=== PATIENT | male | born 1975 | race Two or more races ===

== ENCOUNTER 2017-07-25 09:53 | Emergency (ER) | payer BC ==
--- NOTE | 2017-07-25 10:41 | ED ---
Upper Extremity HPI - General Chief Complaint: Extremity Injury, Upper Stated Complaint: hand pain Time Seen by Provider: 07/25/17 10:06 Source: patient Mode of arrival: ambulatory Limitations: no limitations - History of Present Illness Initial Comments: 42-year-old male presented for evaluation of injury to fourth MCP joint on the right. States that he was working with some machinery trying to tighten a screw and his hand slipped from the screwdriver causing it to thrust forward into the machinery. States initial pain to the MCP joints of the third and fourth digits and initial swelling however this continued overnight causing him to come to the ED for further treatment and evaluation. States that he has no decrease in sensation, motor function, but does state that there is significant swelling and discoloration on the dorsal surface of the hand. There is no pain to the digits themselves. The other injuries. - Related Data Home Medications Medication Instructions Recorded Confirmed Atorvastatin [Lipitor] 20 mg PO DAILY 07/25/17 07/25/17 Lisinopril [Prinivil] 10 mg PO DAILY 07/25/17 07/25/17 Allergies Allergy/AdvReac Type Severity Reaction Status Date / Time No Known Allergies Allergy Verified 07/25/17 10:59 Review of Systems ROS Statement: Those systems with pertinent positive or pertinent negative responses have been documented in the HPI. ROS Other: All systems not noted in ROS Statement are negative. Respiratory: Denies: cough, dyspnea Cardiovascular: Denies: chest pain, palpitations Musculoskeletal: Reports: joint swelling, arthralgia, myalgia. Denies: back pain Skin: Denies: rash, lesions Neurological: Denies: weakness, numbness, paresthesias Hematological/Lymphatic: Denies: easy bleeding, easy bruising Past Medical History Past Medical History: Hyperlipidemia, Hypertension History of Any Multi-Drug Resistant Organisms: None Reported Additional Past Surgical History / Comment(s): vocal cords Past Psychological History: No Psychological Hx Reported Smoking Status: Never smoker Past Alcohol Use History: Occasional Past Drug Use History: None Reported General Exam Limitations: no limitations General appearance: alert, in no apparent distress Head exam: Present: atraumatic, normocephalic, normal inspection Cardiovascular Exam: Present: regular rate, normal rhythm, normal heart sounds. Absent: systolic murmur, diastolic murmur, rubs, gallop, clicks Rectal exam: Present: deferred Extremities exam: Present: full ROM, tenderness, normal capillary refill, joint swelling (Swelling to the third and fourth MCP of the right hand) Neurological exam: Present: alert, oriented X3, normal gait. Absent: motor sensory deficit Psychiatric exam: Present: normal affect, normal mood Skin exam: Present: warm, dry, intact. Absent: rash Course Vital Signs 07/25/17 10:01 Temperature 98.3 F Pulse Rate 94 Respiratory 16 Rate Blood Pressure 149/92 O2 Sat by Pulse 97 Oximetry Disposition Clinical Impression: Metacarpal bone fracture Disposition: HOME SELF-CARE Condition: Stable Instructions: Hand Fracture (ED) Referrals: None,Stated [Primary Care Provider] - 1-2 days Mily Seaman MD [STAFF PHYSICIAN] - 1-2 days Romeo Rojas DO [Doctor of Osteopathic Medicine] - 1-2 days Time of Disposition: 13:20
--- NOTE | 2017-07-25 12:42 | XR ---
EXAMINATION TYPE: XR hand complete RT , 3 VIEWS DATE OF EXAM ORDERED: 07/25/2017 HISTORY: Pain. COMPARISON: None. FINDINGS: There is a metallic sliver projecting over the thenar eminence. There is swelling of the d orsum of the hand. There is an undisplaced but mildly angulated fracture of the distal fourth metacar pal metaphysis. There is a healed fracture of the base of the fifth metacarpal. IMPRESSION: 1. UNDISPLACED MILDLY ANGULATED FRACTURE OF THE DISTAL FOURTH METACARPAL METAPHYSIS. 2. HEALED FRACTURE OF THE BASE OF THE RIGHT FIFTH METATARSAL. 3. METALLIC SLIVER PROJECTING OVER THE THENAR EMINENCE.
[2017-07-25 13:34] VITALS: BP 131/92; PULSE 88; RESP 18; TEMP 97.1
== END 2017-07-25 13:47 | disposition home or self-care (01) ==
LOC: EC 09:53
DX: S62.304A Unspecified fracture of fourth metacarpal bone, right hand, initial encounter for closed fracture (principal); S62.316G Displaced fracture of base of fifth metacarpal bone, right hand, subsequent encounter for fracture with delayed healing; E78.5 Hyperlipidemia, unspecified; I10 Essential (primary) hypertension; Z79.899 Other long term (current) drug therapy; W22.8XXA Striking against or struck by other objects, initial encounter; Y93.89 Activity, other specified
CPT/HCPCS: 29125; 99283

== ENCOUNTER → 2019-07-08 | Outpatient (CLI) | payer BC ==
[2019-07-08 17:50] LABS: African American GFR (CKD) 132.1 (60.0-200.0); Albumin 4.8 g/dL (3.80-4.90); Albumin/Globulin Ratio 1.85 (1.60-3.17); Anion Gap 10.2 mmol/L (4.00-12.00); BUN/Creat Ratio 22.86 Ratio (12.00-20.00); Calcium 9.7 mg/dL (8.7-10.3); Carbon Dioxide 28.8 mmol/L (21.6-31.8); Chol/HDL Ratio 3.26; Globulin 2.6 g/dL (1.6-3.3); LDL Cholesterol,Calculated 80.2 mg/dL (0.0-131.0); Potassium 4.7 mmol/L (3.5-5.5); Total Bilirubin 1.4 mg/dL (0.3-1.2); Total Protein 7.4 g/dL (6.2-8.2); VLDL Calculation 16.8 mg/dL (5.00-40.00)
== END | disposition home or self-care (01) ==
LOC: LABWHC1 09:49
PROVIDERS: ATTEND Internal Medicine
DX: R03.0 Elevated blood-pressure reading, without diagnosis of hypertension (principal)
CPT/HCPCS: 36415; 80053; 80061

== ENCOUNTER 2021-06-04 00:26 | Inpatient (IN) | payer BC ==
[2021-06-04] MEDS ORDERED: LORazepam 2 MG/ML INJ IV STA (00:36)
[2021-06-04] MEDS ORDERED: SODIUM CHLORIDE 0.9% 500 ML 500 ML IV STA (00:36)
[2021-06-04] MEDS ORDERED: SODIUM CHLORIDE 0.9% 1,000 ML IV STA ×2 (00:36)
[2021-06-04] MEDS ORDERED: DIAZEPAM 5 MG/ML 2 ML INJ IVP STA (00:36)
[2021-06-04] MEDS ORDERED: ONDANSETRON 4 MG/2 ML VIAL IVP STA (00:36)
[2021-06-04] MEDS ORDERED: THIAMINE 100 MG/ML 2 ML VIAL IM STA (00:37)
[2021-06-04] MEDS ORDERED: LORazepam 2 MG/ML INJ IV PRN ×3 (00:37)
--- NOTE | 2021-06-04 00:38 | ED ---
Seizure HPI - General Chief Complaint: Seizure Stated Complaint: seizure Source: patient, EMS, RN notes reviewed, old records reviewed Mode of arrival: EMS Limitations: no limitations - History of Present Illness Initial Comments: This is a 46-year-old male to the ER for evaluation patient presents today for evaluation of seizure activity. Patient presents by EMS after having seizure witnessed by family. EMS was called by family who does with patient having seizure. Patient states he's recently stopped drinking. Patient's been feeling unwell since stopping MD Complaint: seizure -: minutes(s) Description of Episode: loss of consciousness, tonic-clonic movement -: second(s) Witnessed: yes - by bystander, yes - by EMS Trauma: No Seizure History: none Place: home Possible Precipitating Event: none Associated Symptoms: denies other symptoms Treatments Prior to Arrival: none - Related Data Home Medications Medication Instructions Recorded Confirmed Atorvastatin [Lipitor] 20 mg PO DAILY 07/25/17 07/25/17 Lisinopril [Prinivil] 10 mg PO DAILY 07/25/17 07/25/17 Allergies Allergy/AdvReac Type Severity Reaction Status Date / Time No Known Allergies Allergy Verified 07/25/17 10:59 Review of Systems ROS Statement: Those systems with pertinent positive or pertinent negative responses have been documented in the HPI. ROS Other: All systems not noted in ROS Statement are negative. Past Medical History Past Medical History: Hyperlipidemia, Hypertension History of Any Multi-Drug Resistant Organisms: None Reported Additional Past Surgical History / Comment(s): vocal cords Past Psychological History: No Psychological Hx Reported Smoking Status: Former smoker Past Alcohol Use History: Abuse, Heavy Past Drug Use History: None Reported General Exam Limitations: no limitations General appearance: alert, in no apparent distress Head exam: Present: atraumatic, normocephalic, normal inspection Eye exam: Present: normal appearance, PERRL, EOMI. Absent: scleral icterus, conjunctival injection, periorbital swelling ENT exam: Present: normal exam, mucous membranes moist Neck exam: Present: normal inspection. Absent: tenderness, meningismus, lymphadenopathy Respiratory exam: Present: normal lung sounds bilaterally. Absent: respiratory distress, wheezes, rales, rhonchi, stridor Cardiovascular Exam: Present: regular rate, normal rhythm, normal heart sounds. Absent: systolic murmur, diastolic murmur, rubs, gallop, clicks GI/Abdominal exam: Present: soft, normal bowel sounds. Absent: distended, tenderness, guarding, rebound, rigid Extremities exam: Present: normal inspection, full ROM, normal capillary refill. Absent: tenderness, pedal edema, joint swelling, calf tenderness Back exam: Present: normal inspection Neurological exam: Present: alert, oriented X3, CN II-XII intact Psychiatric exam: Present: normal affect, normal mood Skin exam: Present: warm, dry, intact, normal color. Absent: rash Course Vital Signs 06/04/21 06/04/21 00:28 01:52 Temperature 98.3 F Pulse Rate 77 96 Respiratory 16 16 Rate Blood Pressure 170/113 157/118 O2 Sat by Pulse 97 96 Oximetry - Reevaluation(s) Reevaluation #1: 06/04/21 01:23 Medical record is reviewed Medical Decision Making - Medical Decision Making 46 male to the ER for evaluation patient with seizure new-onset seizure suspected alcohol withdrawal seizure although patient does state last drink was 4 weeks ago., Does not source of the patient is significantly diaphoretic sweating and tremorous - Lab Data Result diagrams: 06/04/21 00:39 06/04/21 00:39 Lab Results 06/04/21 06/04/21 06/04/21 Range/Units 00:39 00:39 00:39 WBC 11.1 H (3.8-10.6) k/uL RBC 4.28 L (4.30-5.90) m/uL Hgb 14.9 (13.0-17.5) gm/dL Hct 42.8 (39.0-53.0) % MCV 100.0 (80.0-100.0) fL MCH 34.8 (25.0-35.0) pg MCHC 34.8 (31.0-37.0) g/dL RDW 12.6 (11.5-15.5) % Plt Count 142 L (150-450) k/uL MPV 7.7 Neutrophils % 86 % Lymphocytes % 8 % Monocytes % 3 % Eosinophils % 1 % Basophils % 0 % Neutrophils # 9.5 H (1.3-7.7) k/uL Lymphocytes # 0.9 L (1.0-4.8) k/uL Monocytes # 0.4 (0-1.0) k/uL Eosinophils # 0.1 (0-0.7) k/uL Basophils # 0.1 (0-0.2) k/uL Sodium 134 L (137-145) mmol/L Potassium 3.6 (3.5-5.1) mmol/L Chloride 98 (98-107) mmol/L Carbon Dioxide 25 (22-30) mmol/L Anion Gap 11 mmol/L BUN 10 (9-20) mg/dL Creatinine 0.57 L (0.66-1.25) mg/dL Est GFR (CKD-EPI)AfAm >90 (>60 ml/min/1.73 sqM) Est GFR (CKD-EPI)NonAf >90 (>60 ml/min/1.73 sqM) Glucose 122 H (74-99) mg/dL Plasma Lactic Acid Sonido 1.3 (0.7-2.0) mmol/L Calcium 9.6 (8.4-10.2) mg/dL Phosphorus 2.6 (2.5-4.5) mg/dL Magnesium 1.7 (1.6-2.3) mg/dL Total Bilirubin 2.5 H (0.2-1.3) mg/dL AST 54 (17-59) U/L ALT 18 (4-49) U/L Alkaline Phosphatase 68 (38-126) U/L Creatine Kinase 169 (55-170) U/L Troponin I (0.000-0.034) ng/mL Total Protein 7.9 (6.3-8.2) g/dL Albumin 4.8 (3.5-5.0) g/dL Serum Alcohol <10 mg/dL 06/04/21 Range/Units 00:39 WBC (3.8-10.6) k/uL RBC (4.30-5.90) m/uL Hgb (13.0-17.5) gm/dL Hct (39.0-53.0) % MCV (80.0-100.0) fL MCH (25.0-35.0) pg MCHC (31.0-37.0) g/dL RDW (11.5-15.5) % Plt Count (150-450) k/uL MPV Neutrophils % % Lymphocytes % % Monocytes % % Eosinophils % % Basophils % % Neutrophils # (1.3-7.7) k/uL Lymphocytes # (1.0-4.8) k/uL Monocytes # (0-1.0) k/uL Eosinophils # (0-0.7) k/uL Basophils # (0-0.2) k/uL Sodium (137-145) mmol/L Potassium (3.5-5.1) mmol/L Chloride (98-107) mmol/L Carbon Dioxide (22-30) mmol/L Anion Gap mmol/L BUN (9-20) mg/dL Creatinine (0.66-1.25) mg/dL Est GFR (CKD-EPI)AfAm (>60 ml/min/1.73 sqM) Est GFR (CKD-EPI)NonAf (>60 ml/min/1.73 sqM) Glucose (74-99) mg/dL Plasma Lactic Acid Sonido (0.7-2.0) mmol/L Calcium (8.4-10.2) mg/dL Phosphorus (2.5-4.5) mg/dL Magnesium (1.6-2.3) mg/dL Total Bilirubin (0.2-1.3) mg/dL AST (17-59) U/L ALT (4-49) U/L Alkaline Phosphatase (38-126) U/L Creatine Kinase (55-170) U/L Troponin I <0.012 (0.000-0.034) ng/mL Total Protein (6.3-8.2) g/dL Albumin (3.5-5.0) g/dL Serum Alcohol mg/dL - EKG Data -: EKG Interpreted by Me (EKG shows sinus rhythm rate of 100 OH 110 QRS 100 QTc 472) - Radiology Data Radiology results: report reviewed (CT brain is negative for acute disease), image reviewed Critical Care Time Critical Care Time: Yes Total Critical Care Time: 31 Disposition Clinical Impression: New onset seizure, Alcohol withdrawal, Delirium tremens Disposition: ADMITTED IP TO THIS HOSP Condition: Fair Instructions (If sedation given, give patient instructions): Seizure/Epilepsy Discharge Instructions & Follow-Up Is patient prescribed a controlled substance at d/c from ED?: No Referrals: None,Stated [Primary Care Provider] - 1-2 days
[2021-06-04] MEDS ORDERED: levETIRAcetam IV 1,500 MG in SALINE 1 100ML.BAG IVPB ONE (00:45)
[2021-06-04 01:13] LABS: Basophils # (A) 0.1 k/uL (0-0.2); Basophils % (A) 0 %; Eosinophils # (A) 0.1 k/uL (0-0.7); Eosinophils % (A) 1 %; HCT 42.8 % (39.0-53.0); HGB 14.9 gm/dL (13.0-17.5); Lymphocytes # (A) 0.9 k/uL (1.0-4.8); Lymphocytes % (A) 8 %; MCH 34.8 pg (25.0-35.0); MCHC 34.8 g/dL (31.0-37.0); Mean Platelet Volume 7.7; Monocytes # (A) 0.4 k/uL (0-1.0); Monocytes % (A) 3 %; Neutrophils # (A) 9.5 k/uL (1.3-7.7); Neutrophils % (A) 86 %; Platelet Count 142 k/uL (150-450); RBC 4.28 m/uL (4.30-5.90); RDW 12.6 % (11.5-15.5); WBC 11.1 k/uL (3.8-10.6)
[2021-06-04 01:25] LABS: ALT 18 U/L (4-49); AST 54 U/L (17-59); African American GFR (CKD) >90 (>60 ml/min/1.73 sqM); Albumin 4.8 g/dL (3.5-5.0); Alcohol <10 mg/dL; Alkaline Phosphatase 68 U/L (38-126); Anion Gap 11 mmol/L; Blood Urea Nitrogen 10 mg/dL (9-20); Calcium 9.6 mg/dL (8.4-10.2); Carbon Dioxide 25 mmol/L (22-30); Chloride 98 mmol/L (98-107); Creatine Kinase 169 U/L (55-170); Glucose 122 mg/dL (74-99); Magnesium 1.7 mg/dL (1.6-2.3); Non-African American GFR(CKD) >90 (>60 ml/min/1.73 sqM); Phosphorus 2.6 mg/dL (2.5-4.5); Potassium 3.6 mmol/L (3.5-5.1); Sodium 134 mmol/L (137-145); Total Bilirubin 2.5 mg/dL (0.2-1.3); Total Protein 7.9 g/dL (6.3-8.2)
--- NOTE | 2021-06-04 01:34 | CT ---
EXAMINATION TYPE: CT brain wo con DATE OF EXAM: 06/04/2021 COMPARISON: None HISTORY: SEIZURE CT DLP: 1216.4 mGycm Automated exposure control for dose reduction was used. There is mild cerebral atrophy. There is no mass effect nor midline shift. There is no sign of intrac ranial hemorrhage. The calvarium is intact. There is normal aeration of the mastoid sinuses. Skull ba se is intact. There is some dense calcification in the anterior cerebral falx. IMPRESSION: Mild atrophy. No acute intracranial abnormality.
[2021-06-04] MEDS: DEXTROSE 5%-0.45% NACL 1,000 ML IV SCH ×3 (01:45→21:50)
[2021-06-04] MEDS ORDERED: ONDANSETRON 4 MG/2 ML VIAL IVP PRN (02:23)
[2021-06-04] MEDS ORDERED: MORPHINE SULFATE 4 MG/ML SYRINGE IV PRN (02:23)
[2021-06-04] MEDS ORDERED: NALOXONE 0.4 MG/ML 1 ML VIAL IV PRN (02:23)
--- NOTE | 2021-06-04 11:05 | HP ---
HISTORY AND PHYSICAL HISTORY: A 46-year-old male came in, history seizure activity witnessed by his family, longstanding history of seizures. He recently stopped drinking. He has been placed on CIWA protocol and Neurology has been consulted. No chest pain, shortness of breath, lightheaded, dizziness, syncope. MEDICINES: At home include Lipitor 20 daily, Prinivil 10 daily. ALLERGIES: Negative. PAST MEDICAL HISTORY: Former smoker, heavy alcohol abuse. REVIEW OF SYSTEMS: A 14-point review of systems is otherwise negative. PHYSICAL EXAMINATION: Temperature is 98.1, pulse is 70s to 90s, respiratory rate 16 to 18, blood pressure 150s to 170s over 112 to 118 in the ER. : No suprapubic tenderness. PSYCH: Fair mood and affect. Kind of sleepy and lethargic. SKIN: Dry skin turgor, dry mucous membranes. HEENT: Normocephalic atraumatic. Pupils equal, round, reactive to light. Ear canals within normal limits. LUNGS: Normal breath sounds. CARDIOVASCULAR: Regular rate and rhythm. GI: Soft, normal bowel sounds. ASSESSMENT: 1. Alcohol withdrawal versus seizure. 2. History of severe alcohol abuse with delirium tremens. 3. New onset seizure. PLAN: Get neurology consult. Monitor for seizures. Placed on CIWA protocol. Monitor electrolytes. MMODL / IJN: [id number] /
--- NOTE | 2021-06-04 12:02 | P.CNNES ---
History of Present Illness Consult date: 06/04/21 Requesting physician: Casper Lucas Reason for Consult: seizure History of Present Illness: This is a 46-year-old gentleman with history of alcohol use for the past 8 years who presented emergency department via EMS on 06/04/2021 for seizure-like activity. Some of the history is obtained from the patient's (Laura) via phone. Per the patient he stated that he had an seizure activity yesterday evening while sitting on a couch that was witnessed by family members and does not recall the episode. Per the patient's she stated that patient was sitting on a couch and heard a loud noise and then when she came she saw the patient shaking all extremities and was unresponsive and the episode lasted for 1 minutes. His face turned blue during the episode. She could not appreciate any gaze deviation she said that she was not paying attention added. She denies any foaming around the mouth. Patient did not have any urinary or bowel incontinence and the patient did not have any post ictal confusion she stated that he was talking appropriately right after the episode but did not know what transpired. This was the first seizure activity the patient had that. Patient has not had any seizures in the past. Per the patient he stated that his last was 3-1/2-4 weeks ago and he stated that multiple times but upon having his on speaker phone using the patient phone, his stated that that was not accurate and the patient continues to drink. She stated that his last drink was this past Wednesday that is aware of. She stated that last week the patient was notified by his work the place for him to leave work that day since patient was unsteady walking and they smelled alcohol on his breath. He said for the past 8 years he's been drinking heavily and he drinks about a pint a day but the last 3-1/2 weeks to 4 weeks he is been not drinking as heavily and says he's probably drink in the eyeglass and its small. In the last couple days patient has been having sweating episodes and been feeling hot and cold. Again last week when he was at work the stated that he was drinking and he was notified by his work that the he was drunk and he was walk-in unsteady. Patient denies any fevers, headache, neck pain, focal weakness, numbness, visual disturbance. Denies any nausea or vomiting. Patient denies any seizures in the past or any family history of seizures. Per the patient's nurse and she stated that the patient is restless. Some of the workup in the hospital consisted of: Initial vital signs his blood pressure of 170/113, heart rate of 77, respiratory of 16, temperature of 98.3 Fahrenheit oral and pulse ox of 97% room air. CT of the head is reported as mild atrophy. No acute intracranial abnormality. I personally reviewed the CT of the head and I feel the patient has calcified meningioma in anterior mid front falx region. EKG is reported as sinus rhythm with short ND. Rightward axis. Borderline EKG. White blood cell is 11.1 which is slightly elevated and the platelets is 142 which is slightly low. Sodium is 134 which is minimally low. The glucose is 122. Otherwise the rest of the chemistry panel is unremarkable. Calcium is 9.6, phosphorus 2.6, magnesium is 1.7, glucose is 122 which is on elevated blood unremarkable. Serum alcohol level is less than 10. Review of Systems Review of system: The 12 point system was reviewed and apparent positive and negative per HPI. Past Medical History Past Medical History: Hyperlipidemia, Hypertension History of Any Multi-Drug Resistant Organisms: None Reported Additional Past Surgical History / Comment(s): vocal cords Past Psychological History: No Psychological Hx Reported Smoking Status: Never smoker Past Alcohol Use History: Abuse, Heavy Past Drug Use History: None Reported Medications and Allergies Home Medications Medication Instructions Recorded Confirmed Type No Known Home Medications 06/04/21 06/04/21 History Allergies Allergy/AdvReac Type Severity Reaction Status Date / Time No Known Allergies Allergy Verified 07/25/17 10:59 Physical Examination - Vital Signs Vital Signs: Vital Signs Temp Pulse Pulse Resp BP BP Pulse Ox 06/04/21 07:26 98.3 F 86 18 153/98 96 06/04/21 03:41 98.0 F 86 16 151/93 96 06/04/21 02:40 77 16 149/101 98 06/04/21 01:52 96 16 157/118 96 06/04/21 00:28 98.3 F 77 16 170/113 97 Intake and Output 06/03/21 06/04/21 06/04/21 22:59 06:59 14:59 Intake Total 200 Output Total 450 Balance -250 Intake: Intake, IV Titration 200 Amount Dextrose 5%-0.45% NaCl 1, 200 000 ml @ 100 mls/hr IV . Q10H [facility] Rx#:[id number] Output: Urine 450 Other: Voiding Method Urinal Urinal Weight 99.79 kg GENERAL: The patient is lying in bed and seems restless. HENT: Supple neck. No neck rigidity. CHEST: The heart rate is regular rate rhythm. No murmurs to auscultation. No carotid bruit bilaterally. LUNG: Clear to auscultation bilaterally no wheezing noted throughout. Not labored breathing. ABDOMEN/GI: Bowel sounds present in all 4 quadrants. No tenderness to palpation throughout. NEUROLOGICAL: Higher mental function: The patient is awake, alert, oriented to self, place and time. Patient is following commands. Patient speak has an accent but is understandable. No aphasia and no neglect. Cranial nerves: The pupils are round, equal and reactive to light and accommodation. Visual morales are full to confrontation throughout. Extraocular movement is intact no nystagmus is noted. Facial sensation is normal to touch throughout. The facial strength is normal throughout. Hearing is normal laine aterally to hand rub. Tongue is midline and moved [id number] without any difficulty. No dysarthria is noted. Shoulder shrug is normal bilaterally. Motor: Gait is deferred. The strength is 5 over 5 throughout. Normal tone and bulk. Cerebellum: Normal finger to nose heel to jasmine bilaterally. Sensation: Sensation is normal to touch throughout. Reflexes (right/left): 2+ throughout. Plantars are downgoing bilaterally. Results - Laboratory Findings CBC and BMP: 06/04/21 00:39 06/04/21 00:39 Abnormal Lab Findings: Abnormal Labs 06/04/21 06/04/21 00:39 00:39 WBC 11.1 H RBC 4.28 L Plt Count 142 L Neutrophils # 9.5 H Lymphocytes # 0.9 L Sodium 134 L Creatinine 0.57 L Glucose 122 H Total Bilirubin 2.5 H Assessment and Plan Assessment: * New onset seizure seems provoked seizure due to alcohol withdrawl (drinks heavily for the past 8 years but has been trying to cut down for the past 3 1/2 to 4 weeks. Last drink was possibly Wednesday). * Heavy alcohol use for past 8 years (patient is not forward about his drinking and stated initially multiple times his last drink was 3 1/2 to 4 weeks ago but upon having his on phone speaker she stated he continues to drinks and he did acknowledge that he continues to drink but not as heavily) Plan: * In the ED the patient was given Keppra 1500 mg once and was given Valium 5 mg once. * An EEG is ordered by the primary team. I will not start the patient on antiepileptic drug since this is provoke. I will start the patient on AED if epileptiform discharges or seizure on the EEG or any structural abnormality on MRI Brain. * I ordered MRI the brain with and without. If patient refuses this, than this can be done as outpatient. * Seizure precaution and seizure pads are ordered. * Every 4 hours neuro checks * Ordered vitamin B12, folate level. * Thiamine 100 mg a tablet twice a day is ordered by ED team is to be continued. * The is requesting psychiatric consultation * We'll defer the rest of the medical management to primary team. 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 * Patient was counseled on continuing to abstain from alcohol use. The plan is discussed with the patient and his (Laura) via phone. Thank you for the consultation. Zac Cervantes M.D. Neurology was Time with Patient: Greater than 30
[2021-06-04] MEDS: PANTOPRAZOLE 40 MG/10 ML VIAL IV SCH (12:25)
--- NOTE | 2021-06-04 13:19 | P.CN ---
Psychiatric Consult - . Consult date: 06/04/21 Consult:: 06/04/21 13:19 IDENTIFYING DATA: This patient is a 46-year-old, employed, , male who was admitted for seizure-like activity in the context of alcohol withdrawal. HISTORY OF PRESENT ILLNESS: The patient presented to the hospital on 06/04/2021, brought in by EMS after the family witnessed the patient experienced a seizure. The patient has been drinking heavily and decided to stop drinking. Psychiatry has been consulted for evaluation of alcohol use disorder. The patient reports that prior to this presentation to the hospital, he was drinking up to a pint of hard liquor per day. He reports that he recently decre ased his alcohol use to approximately 2 ounces of liquor in the morning. Reportedly, the patient was sitting on the couch and his noticed that he was shaking in all extremities and was unresponsive for a minute. The patient was also noted to be quite cyanotic during this episode. The patient reports that this is the first time he has experienced a seizure. He does report a history of withdrawal symptoms but only noted that prior to this seizure episode, he would only experience at most tremors. The patient denies ever going to rehabilitation for alcohol use disorder. He denies any history of detoxification. He denies ever being placed on medications for alcohol use disorder. The patient recently cut down on his alcohol use as he was noted to be intoxicated while at work. In regards to psychiatric symptoms, the patient is not endorsing any significant history of depression or anxiety at this time. He denies any history of suicidal or homicidal ideation, intention, and/or plan. Reports no prior attempts at suicide. He denies any auditory or visual hallucinations. He denies any paranoia or other delusions. The patient denies any significant history of bipolar disorder. PAST PSYCHIATRIC HISTORY: The patient denies any significant psychiatric history. Reports no previous trials of psychotropic medications. He denies any psychiatric hospitalizations. He denies any psychiatric outpatient follow-up. He denies any prior attempts at suicide. PAST MEDICAL HISTORY: . ALLERGIES: NO KNOWN DRUG ALLERGIES CHEMICAL DEPENDENCY HISTORY: The patient reports that he has been drinking up to a pint of liquor per day for years. He reports that over the past week his decreased his intake to "a few sips in the morning." He points to his yogurt and states that this is the amount of liquor that he continues to have daily. He reports no history of rehabilitation. FAMILY PSYCHIATRIC/SUBSTANCE USE HISTORY: denies SOCIAL HISTORY: Patient [place] He has been to his since 1995. They have 2 children together ages 17 and 21. 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 He currently lives with his mother, child, and his . He graduated high school. He moved to [place] from [facility] in 1986.. MENTAL STATUS EXAM: General Appearance: Patient appears to be stated age is alert, pleasant, and cooperative. Patient appears to have fair hygiene and grooming wearing hospital gown with fair eye contact. Behavior: Patient is calmly lying in bed without any agitated behavior. Eye contact is appropriate. Speech: Patient's speech is fluent and nonpressured. Monotone but spontaneous. Mood/Affect: Patient reports their mood is "doing fine", affect is congruent and euthymic. Suicidality/Homicidality: Patient denies having any suicidal or homicidal ideation intent or plan. Perceptions: Patient denies any visual hallucinations and denies any auditory hallucinations Though content/process: There is no evidence of any delusional thought content and thought process is linear and goal-directed. Memory and concentration: AOX3, grossly intact for the purposes of this session. Can spell "WORLD" backwards Judgment and insight: Fair Vital Signs Temp 98.4 F 06/04/21 13:06 Pulse 74 06/04/21 13:06 Resp 18 06/04/21 13:06 BP 129/82 06/04/21 13:06 Pulse Ox 95 06/04/21 13:06 Intake & Output 06/03/21 06/04/21 06/04/21 18:59 06:59 18:59 Intake Total 200 Output Total 450 Balance -250 Weight 99.79 kg Intake: Intake, IV Titration 200 Amount Dextrose 5%-0.45% NaCl 1, 200 000 ml @ 100 mls/hr IV . Q10H [facility] Rx#:[id number] Output: Urine 450 Other: Voiding Method Urinal Urinal Laboratory Results WBC 11.1 k/uL (3.8-10.6) H 06/04/21 00:39 RBC 4.28 m/uL (4.30-5.90) L 06/04/21 00:39 Hgb 14.9 gm/dL (13.0-17.5) 06/04/21 00:39 Hct 42.8 % (39.0-53.0) 06/04/21 00:39 MCV 100.0 fL (80.0-100.0) 06/04/21 00:39 MCH 34.8 pg (25.0-35.0) 06/04/21 00:39 MCHC 34.8 g/dL (31.0-37.0) 06/04/21 00:39 RDW 12.6 % (11.5-15.5) 06/04/21 00:39 Plt Count 142 k/uL (150-450) L 06/04/21 00:39 MPV 7.7 06/04/21 00:39 Neutrophils % 86 % 07 00:39 Lymphocytes % 8 % 06/04/21 00:39 Monocytes % 3 % 06/04/21 00:39 Eosinophils % 1 % 06/04/21 00:39 Basophils % 0 % 06/04/21 00:39 Neutrophils # 9.5 k/uL (1.3-7.7) H 06/04/21 00:39 Lymphocytes # 0.9 k/uL (1.0-4.8) L 06/04/21 00:39 Monocytes # 0.4 k/uL (0-1.0) 06/04/21 00:39 Eosinophils # 0.1 k/uL (0-0.7) 06/04/21 00:39 Basophils # 0.1 k/uL (0-0.2) 06/04/21 00:39 Sodium 134 mmol/L (137-145) L 06/04/21 00:39 Potassium 3.6 mmol/L (3.5-5.1) 06/04/21 00:39 Chloride 98 mmol/L (98-107) 06/04/21 00:39 Carbon Dioxide 25 mmol/L (22-30) 06/04/21 00:39 Anion Gap 11 mmol/L 06/04/21 00:39 BUN 10 mg/dL (9-20) 06/04/21 00:39 Creatinine 0.57 mg/dL (0.66-1.25) L 06/04/21 00:39 Est GFR (CKD-EPI)AfAm >90 (>60 ml/min/1.73 sqM) 06/04/21 00:39 Est GFR (CKD-EPI)NonAf >90 (>60 ml/min/1.73 sqM) 06/04/21 00:39 Glucose 122 mg/dL (74-99) H 06/04/21 00:39 Plasma Lactic Acid Sonido 1.3 mmol/L (0.7-2.0) 06/04/21 00:39 Calcium 9.6 mg/dL (8.4-10.2) 06/04/21 00:39 Phosphorus 2.6 mg/dL (2.5-4.5) 06/04/21 00:39 Magnesium 1.7 mg/dL (1.6-2.3) 06/04/21 00:39 Total Bilirubin 2.5 mg/dL (0.2-1.3) H 06/04/21 00:39 AST 54 U/L (17-59) 06/04/21 00:39 ALT 18 U/L (4-49) 06/04/21 00:39 Alkaline Phosphatase 68 U/L (38-126) 06/04/21 00:39 Creatine Kinase 169 U/L (55-170) 06/04/21 00:39 Troponin I <0.012 ng/mL (0.000-0.034) 06/04/21 00:39 Total Protein 7.9 g/dL (6.3-8.2) 06/04/21 00:39 Albumin 4.8 g/dL (3.5-5.0) 06/04/21 00:39 Serum Alcohol <10 mg/dL 06/04/21 00:39 IMPRESSIONS: Alcohol use disorder Acute alcohol withdrawal - new-onset seizure likely provoked by alcohol withdrawal PLAN: -At this time patient DOES NOT meet criteria for inpatient psychiatric admission. -Would recommend the following medication changes/additions: No medication recommendations at this time. Continue CIWA protocol with ativan PRN. -Recommend patient is provided sources from regarding alcohol cessation programs -Psychiatry will sign off at this point, please contact with any questions.
--- NOTE | 2021-06-04 17:05 | EEG ---
ELECTROENCEPHALOGRAM REPORT DATE OF SERVICE: 06/04/2021 CLINICAL HISTORY: This is a 46-year-old gentleman with a history of alcohol use, who had a seizure-like episode. The video EEG is obtained to evaluate for seizure and epileptiform activity. RELEVANT MEDICATION: The patient is not on any antiepileptic drugs. EEG TYPE: A routine 21 channel EEG is performed with video using the 10/20 electrode placement system. DESCRIPTION: Wakefulness is only obtained. During wakefulness, there is a posterior dominant rhythm of bas-mz-jvvitgnb voltage that is well modulated, well sustained of 8.5-9 hertz activity. There was no physiological sleep architecture seen. There is no focal slowing. Interictal and ictal are none. ACTIVATION PROCEDURES: Photic stimulation did not evoke a posterior driving response. There is no abnormality during the photic stimulation. Hyperventilation is not performed. CLINICAL INTERPRETATION: This is a normal routine EEG. There are no focal slowing, epileptiform discharges or seizure on the EEG. Clinical correlation is recommended. BHASKAR / MEIN: [id number] / MTDSalome
[2021-06-04] MEDS: THIAMINE 100 MG TAB PO SCH (17:23)
[2021-06-05 04:39] LABS: Folate, Serum 7.6 ng/mL
[2021-06-05] MEDS: DEXTROSE 5%-0.45% NACL 1,000 ML IV SCH (05:01)
[2021-06-05] MEDS: PANTOPRAZOLE 40 MG/10 ML VIAL IV SCH (08:28)
[2021-06-05] MEDS: THIAMINE 100 MG TAB PO SCH (08:29)
[2021-06-05 09:21] LABS: Basophils # (A) 0.06 X 10*3/uL (0.00-0.10); Basophils % (A) 0.7 %; Eosinophils # (A) 0.26 X 10*3/uL (0.04-0.35); HCT 40.7 % (39.6-50.0); HGB 13.8 g/dL (13.0-17.0); Lymphocytes # (A) 1.73 X 10*3/uL (0.90-5.00); Lymphocytes % (A) 19.8 %; MCH 35.1 pg (27.0-32.0); MCHC 33.9 g/dL (32.0-37.0); MCV 103.6 fL (80.0-97.0); Mean Platelet Volume 9.5 fL (9.5-12.2); Monocytes # (A) 0.62 X 10*3/uL (0.20-1.00); Monocytes % (A) 7.1 %; Neutrophils # (A) 6.03 X 10*3/uL (1.80-7.70); Neutrophils % (A) 69.1 %; Platelet Count 128 X 10*3/uL (140-440); RBC 3.93 X 10*6/uL (4.40-5.60); RDW 12.7 % (11.5-14.5); WBC 8.73 X 10*3/uL (4.50-10.00)
[2021-06-05 11:34] LABS: African American GFR (CKD) 130.2 (60.0-200.0); Albumin 4.3 g/dL (3.80-4.90); Albumin/Globulin Ratio 1.48 (1.60-3.17); Anion Gap 13.4 mmol/L (4.00-12.00); BUN/Creat Ratio 12.86 Ratio (12.00-20.00); Carbon Dioxide 23.6 mmol/L (21.6-31.8); Globulin 2.9 g/dL (1.6-3.3); Magnesium 1.8 mg/dL (1.5-2.4); Non-African American GFR(CKD) 112.4 (60.0-200.0); Phosphorus 3.8 mg/dL (2.4-5.1); Potassium 3.8 mmol/L (3.5-5.5); Total Bilirubin 2.3 mg/dL (0.3-1.2); Total Protein 7.2 g/dL (6.2-8.2)
[2021-06-05 13:34] VITALS: BP 151/89; PULSE 80; RESP 15; TEMP 98.3
--- NOTE | 2021-06-05 14:13 | P.PN ---
Subjective Progress Note Date: 06/05/21 The patient seen at bedside in the patient stated that he has no seizures as well as the nurse stated that the patient has not had any seizures since being in the hospital. As of any new focal neurological deficits, visual disturbance. Objective - Vital Signs Vital signs: Vital Signs Temp 98.3 F 06/05/21 13:00 Pulse 80 06/05/21 13:00 Resp 15 06/05/21 13:00 BP 151/89 06/05/21 13:00 Pulse Ox 96 06/05/21 13:00 Intake & Output 06/04/21 06/05/21 06/05/21 18:59 06:59 18:59 Other: Voiding Method Urinal Urinal Urinal # Voids 2 - Exam GENERAL: The patient is lying in bed and seems restless. NEUROLOGICAL: Higher mental function: The patient is awake, alert, oriented to self, place and time. Patient is following commands. Patient speak has an accent but is understandable. No aphasia and no neglect. Cranial nerves: The pupils are round, equal and reactive to light and accommodation. Visual morales are full to confrontation throughout. Extraocular movement is intact no nystagmus is noted. Facial sensation is normal to touch throughout. The facial strength is normal throughout. Hearing is normal bilaterally to hand rub. Tongue is midline and moved [id number] without any difficulty. No dysarthria is noted. Shoulder shrug is normal bilaterally. Motor: Gait is deferred. The strength is 5 over 5 throughout. Normal tone and bulk. Cerebellum: Normal finger to nose heel to jasmine bilaterally. Sensation: Sensation is normal to touch throughout. Reflexes (right/left): 2+ throughout. Plantars are downgoing bilaterally. WORK-UP: Vitamin B12 is 492 which is considered within normal limits. Folate level is 7.6 which is considered normal but low-normal. EEG on 06/04/2021 is normal. - Labs CBC & Chem 7: 06/05/21 06:33 06/05/21 06:33 Labs: Abnormal Lab Results - Last 24 Hours (Table) 06/05/21 06/05/21 Range/Units 06:33 06:33 RBC 3.93 L (4.40-5.60) X 10*6/uL MCV 103.6 H (80.0-97.0) fL MCH 35.1 H (27.0-32.0) pg Plt Count 128 L (140-440) X 10*3/uL Anion Gap 13.40 H (4.00-12.00) mmol/L Total Bilirubin 2.3 H (0.3-1.2) mg/dL AST 42 H (14-35) U/L Albumin/Globulin Ratio 1.48 L (1.60-3.17) g/dL Assessment and Plan Assessment: * New onset seizure seems provoked seizure due to alcohol withdrawl (drinks heavily for the past 8 years but has been trying to cut down for the past 3 1/2 to 4 weeks. Last drink was possibly Wednesday). * Heavy alcohol use for past 8 years (patient is not forward about his drinking and stated initially multiple times his last drink was 3 1/2 to 4 weeks ago but upon having his on phone speaker she stated he continues to drinks and he did acknowledge that he continues to drink but not as heavily) Plan: * Antiepileptic drug is not needed at this time since provoked likely from seizure withdrawl. * Pending MRI the brain with and without. * Seizure precaution and seizure pads are ordered. * Every 4 hours neuro checks * Started the patient on folic acid 1 mg daily * Continue Thiamine 100 mg a tablet twice a day. * We'll defer the rest of the medical management to primary team. * The patient was notified that per [place] DMV that he cannot drive for 6 month until seizure free, to avoid the [place], using heavy machinery or swimming unassisted. * Patient was counseled on continuing to abstain from alcohol use. The plan is discussed with the patient and his (Laura) via phone. If MRI Brain is normal (no mass, ischemia) than patient is clear from neurological stand point. Zac Cervantes M.D. Neurology was Time with Patient: Less than 30
[2021-06-05] MEDS ORDERED: FOLIC ACID 1 MG TAB PO SCH (14:15)
[2021-06-06] MEDS ORDERED: PANTOPRAZOLE 40 MG TABLET PO SCH (07:30)
== END 2021-06-05 14:04 | disposition home or self-care (01) | DRG 897 ==
LOC: EC 00:26 → 4SSUR 02:24
PROVIDERS: ADMIT Family Medicine; ATTEND Family Medicine
DX: F10.131 Alcohol abuse with withdrawal delirium (principal); E78.5 Hyperlipidemia, unspecified; I10 Essential (primary) hypertension; Z87.891 Personal history of nicotine dependence; D32.9 Benign neoplasm of meninges, unspecified
CPT/HCPCS: 36415; 70450; 80053; 80320; 82550; 82607; 82746; 83605; 83735; 84100; 84484; 85025; 93005; 95816; 96361; 96372; 96374; 96375; 99291

== ENCOUNTER 2021-12-14 21:13 | Emergency (ER) | payer BC, OTHER ==
[~2021-12-14 21:13] MED LIST: THIAMINE 100 MG TAB PO SCH
[2021-12-14] MEDS ORDERED: LORazepam 2 MG/ML INJ IV PRN ×2 (21:21)
[2021-12-14] MEDS ORDERED: THIAMINE 100 MG/ML 2 ML VIAL IM STA (21:21)
[2021-12-14] MEDS: LORazepam 2 MG/ML INJ IV PRN ×2 (21:40→23:20)
--- NOTE | 2021-12-14 21:48 | ED ---
General Adult HPI - General Chief complaint: Seizure Stated complaint: Seizure Time Seen by Provider: 12/14/21 21:15 Source: patient, EMS, RN notes reviewed, old records reviewed Mode of arrival: EMS Limitations: language barrier, altered mental status - History of Present Illness Initial comments: 46-year-old male presents with suspected seizure. History is obtained by paramedics and patient's who is at bedside. She did not witness the seizure activity but states according to family this lasted about 10 minutes. According to the this occurred at approximately 2 PM and the patient had not been himself since then. Patient does consume a significant amount of alcohol. She believes his last drink was yesterday. Patient will follow some simple commands but is unable to give a detailed history. He was transported by paramedics and required restraint during transport. No anticoagulation. - Related Data Home Medications Medication Instructions Recorded Confirmed Disulfiram [Antabuse] See Taper PO DIRECTED 12/14/21 12/14/21 Allergies Allergy/AdvReac Type Severity Reaction Status Date / Time No Known Allergies Allergy Verified 12/14/21 21:51 Review of Systems ROS Statement: Those systems with pertinent positive or pertinent negative responses have been documented in the HPI. ROS Other: All systems not noted in ROS Statement are negative. Past Medical History Past Medical History: Hyperlipidemia, Hypertension History of Any Multi-Drug Resistant Organisms: None Reported Additional Past Surgical History / Comment(s): vocal cords Past Psychological History: No Psychological Hx Reported Smoking Status: Never smoker Past Alcohol Use History: Abuse, Heavy Past Drug Use History: None Reported General Exam Limitations: language barrier, altered mental status General appearance: lethargic Head exam: Present: atraumatic, normocephalic Eye exam: Present: normal appearance, PERRL ENT exam: Present: mucous membranes dry Neck exam: Present: normal inspection Respiratory exam: Present: normal lung sounds bilaterally, other (Breathing spontaneously, protecting his airway.). Absent: respiratory distress, wheezes Cardiovascular Exam: Present: regular rate, normal rhythm GI/Abdominal exam: Present: soft, other (Anterior abdominal wall bruising). Abs ent: distended, tenderness, guarding Extremities exam: Present: normal inspection, normal capillary refill Neurological exam: Present: other (Patient is postictal. He is moving all extremities symmetrically. No gaze deviation. No nystagmus. GCS of 12 ). Absent: oriented X3 Skin exam: Present: warm, dry, intact. Absent: cyanosis, diaphoretic Course Vital Signs 12/14/21 12/14/21 12/14/21 21:34 22:24 23:00 Temperature 99.1 F 99.4 F Pulse Rate 81 66 68 Respiratory 16 20 18 Rate Blood Pressure 147/77 131/77 141/96 O2 Sat by Pulse 97 96 99 Oximetry - Reevaluation(s) Reevaluation #1: 12/14/21 2218 Code stroke activated secondary to intracranial hemorrhage. I discussed case with Dr. Stephen devine for stroke intervention who does recommend DDAVP and Keppra. He also requests CT angiography and requested the patient be transferred to [facility]. EKG Findings - EKG Comments: EKG Findings:: EKG: Normal sinus rhythm, tremor artifact, no ST segment elevation. Rate of 75, AR interval 1:30, QRS duration 98, QTC 484. Medical Decision Making - Medical Decision Making 46-year-old male history of alcohol use and abuse who presented with seizure which according the family was at approximately 2 PM. The history is obtained from paramedics and the patient's was not with the patient at the time of seizure but it lasted approximately 10 minutes. There is no other history to suggest that the patient was altered in any way prior to seizure. No anticoagulation. No history of antiplatelets. Patient is confused. He is moving all extremities. He will follow some simple commands. There is no external signs of head trauma or history to suggest trauma. Family did indicate that his last alcoholic drink was yesterday. Patient taken to CT which does reveal cranial hemorrhage, I discussed case with Dr. Stephen devine for stroke neurology. Initial recommendations was to transfer to [facility] however [place] is not currently excepting transfers. Did discuss the case with the neuro team at [facility]. Patient will be transferred to [facility] for further evaluation treatment. - Lab Data Result diagrams: 12/14/21 21:38 12/14/21 21:38 Lab Results 12/14/21 12/14/21 12/14/21 Range/Units 21:38 21:38 21:38 WBC 12.8 H (3.8-10.6) k/uL RBC 4.10 L (4.30-5.90) m/uL Hgb 14.5 (13.0-17.5) gm/dL Hct 42.2 (39.0-53.0) % MCV 102.8 H (80.0-100.0) fL MCH 35.2 H (25.0-35.0) pg MCHC 34.3 (31.0-37.0) g/dL RDW 12.8 (11.5-15.5) % Plt Count 258 (150-450) k/uL MPV 7.7 Neutrophils % 87 % Lymphocytes % 7 % Monocytes % 4 % Eosinophils % 1 % Basophils % 0 % Neutrophils # 11.1 H (1.3-7.7) k/uL Lymphocytes # 0.9 L (1.0-4.8) k/uL Monocytes # 0.5 (0-1.0) k/uL Eosinophils # 0.1 (0-0.7) k/uL Basophils # 0.0 (0-0.2) k/uL Macrocytosis Slight PT 11.2 (9.0-12.0) sec INR 1.0 (<1.2) APTT 22.0 (22.0-30.0) sec Sodium 129 L (137-145) mmol/L Potassium 3.9 (3.5-5.1) mmol/L Chloride 96 L (98-107) mmol/L Carbon Dioxide 24 (22-30) mmol/L Anion Gap 9 mmol/L BUN 8 L (9-20) mg/dL Creatinine 0.63 L (0.66-1.25) mg/dL Est GFR (CKD-EPI)AfAm >90 (>60 ml/min/1.73 sqM) Est GFR (CKD-EPI)NonAf >90 (>60 ml/min/1.73 sqM) Glucose 121 H (74-99) mg/dL Calcium 9.9 (8.4-10.2) mg/dL Magnesium 1.5 L (1.6-2.3) mg/dL Total Bilirubin 4.0 H (0.2-1.3) mg/dL AST 60 H (17-59) U/L ALT 25 (4-49) U/L Alkaline Phosphatase 74 (38-126) U/L Total Protein 8.1 (6.3-8.2) g/dL Albumin 4.5 (3.5-5.0) g/dL Serum Alcohol <10 mg/dL Critical Care Time Critical Care Time: Yes Total Critical Care Time: 35 Disposition Clinical Impression: Alcohol withdrawal, ICH (intracerebral hemorrhage), Intraparenchymal hemorrhage of brain Disposition: OTHER INSTITUTION NOT DEFINED Condition: Serious Is patient prescribed a controlled substance at d/c from ED?: No Referrals: Jazmyne Araiza MD [Primary Care Provider] - 1-2 days Time of Disposition: 22:56 - Out of Hospital Transfer - Req. Specs Out of Hospital Transfer - Requested Specifics: Neurological ICU ([facility])
[2021-12-14 21:58] LABS: Basophils % (A) 0 %; Eosinophils # (A) 0.1 k/uL (0-0.7); Eosinophils % (A) 1 %; HCT 42.2 % (39.0-53.0); HGB 14.5 gm/dL (13.0-17.5); Lymphocytes # (A) 0.9 k/uL (1.0-4.8); Lymphocytes % (A) 7 %; MCH 35.2 pg (25.0-35.0); MCHC 34.3 g/dL (31.0-37.0); MCV 102.8 fL (80.0-100.0); Macrocytosis Slight; Mean Platelet Volume 7.7; Monocytes # (A) 0.5 k/uL (0-1.0); Monocytes % (A) 4 %; Neutrophils # (A) 11.1 k/uL (1.3-7.7); Neutrophils % (A) 87 %; Platelet Count 258 k/uL (150-450); RDW 12.8 % (11.5-15.5); WBC 12.8 k/uL (3.8-10.6)
[2021-12-14 22:00] LABS: ALT 25 U/L (4-49); AST 60 U/L (17-59); African American GFR (CKD) >90 (>60 ml/min/1.73 sqM); Albumin 4.5 g/dL (3.5-5.0); Alcohol <10 mg/dL; Alkaline Phosphatase 74 U/L (38-126); Anion Gap 9 mmol/L; Blood Urea Nitrogen 8 mg/dL (9-20); Calcium 9.9 mg/dL (8.4-10.2); Carbon Dioxide 24 mmol/L (22-30); Chloride 96 mmol/L (98-107); Glucose 121 mg/dL (74-99); Magnesium 1.5 mg/dL (1.6-2.3); Non-African American GFR(CKD) >90 (>60 ml/min/1.73 sqM); Potassium 3.9 mmol/L (3.5-5.1); Sodium 129 mmol/L (137-145); Total Protein 8.1 g/dL (6.3-8.2)
[2021-12-14 22:03] LABS: Prothrombin Time 11.2 sec (9.0-12.0)
[2021-12-14] MEDS ORDERED: levETIRAcetam IV 1,500 MG in SALINE 1 100ML.BAG IVPB STA (22:15)
[2021-12-14] MEDS ORDERED: DESMOPRESSIN ACETATE 40 MCG in SODIUM CHLORIDE 0.9% 50 ML IVPB ONE (22:45)
--- NOTE | 2021-12-14 22:54 | CT ---
EXAMINATION TYPE: CT brain cspine wo con DATE OF EXAM: 12/14/2021 COMPARISON: CT brain 06/04/2021 HISTORY: Seizure, ETOH CT DLP: 1665.2 mGycm Automated exposure control for dose reduction was used. Images of the brain and cervical spine without contrast. There is large multiple areas of high attenuation in both frontal lobes in the parenchyma related to acute parenchymal hemorrhage. This is more on the right side than the left. There is no midline shift . There is slight effacement of the frontal horn right lateral ventricle due to the hemorrhage. There is no evidence of posterior fossa mass. Brainstem is intact. There is no evidence of subarachno id hemorrhage. There is subdural hemorrhage over the right frontal convexity. The calvarium is intact . The cervical vertebra have fairly normal spacing and alignment. Posterior element are intact. Prevert ebral soft tissues are intact. Facet joints are intact. There is also small amount of hemorrhage in t he subdural space over the anterior aspect of the temporal lobes in the middle cranial fossa. IMPRESSION: Acute large areas of parenchymal hemorrhage that measure up to 3.5 cm in both frontal lobes with prerna cent acute subdural hemorrhage measuring up to 1 cm in thickness. Is extensive surrounding edema with mass effect No acute abnormality of the cervical spine. No fracture. Exam was discussed with emergency room staff at 11:00 PM.
--- NOTE | 2021-12-14 23:08 | CT ---
EXAMINATION TYPE: CT angio [facility] DATE OF EXAM: 12/14/2021 COMPARISON: None HISTORY: ICH CT DLP: 1121.4 mGycm Automated exposure control for dose reduction was used. CONTRAST: Performed with IV Contrast, patient injected with 100 mL of Isovue 370. Images obtained from the skull base to the vertex of the brain with IV contrast. There are Three-D po stprocessed images. There is arterial flow in the anterior middle and posterior cerebral arteries. There is arterial flow in the vertebrobasilar artery system. There is flow in both intracranial internal carotid arteries. There is relative lack of blood flow in the right frontal lobe in the area of extensive parenchymal h emorrhage. I see no evidence of aneurysm. There is no evidence of intracranial hemodynamic arterial s tenosis. There is normal enhancement of the venous sinuses at the skull base. IMPRESSION: There is some mass effect upon the branches of the right anterior cerebral artery and the right front al lobe related to parenchymal extensive hemorrhage. No evidence of intracranial aneurysm or stenosis ..
[2021-12-14] MEDS ORDERED: ACETAMINOPHEN SUPPOSITORY 650 MG SUPP RECTAL STA (23:47)
[2021-12-15 00:01] VITALS: BP 143/108; PULSE 78; RESP 15; TEMP 102.2
== END 2021-12-15 00:07 | disposition other institution (70) ==
LOC: EC 21:13
DX: I61.9 Nontraumatic intracerebral hemorrhage, unspecified (principal); F10.239 Alcohol dependence with withdrawal, unspecified; F10.229 Alcohol dependence with intoxication, unspecified; Y90.0 Blood alcohol level of less than 20 mg/100 ml; I10 Essential (primary) hypertension; E78.5 Hyperlipidemia, unspecified
CPT/HCPCS: 36415; 93005; 80053; 83735; 85025; 85610; 85730; 80320; 87635; 72125; 70496; 70450; 99291; 96374; 96375 ×2; J2060; Q9967

== ENCOUNTER → 2022-05-01 | Outpatient (CLI) | payer OTHER ==
[2022-05-01 22:43] LABS: Basophils # (A) 0.06 X 10*3/uL (0.00-0.10); Basophils % (A) 0.8 %; Eosinophils # (A) 0.17 X 10*3/uL (0.04-0.35); Eosinophils % (A) 2.1 %; HCT 43.7 % (39.6-50.0); HGB 14.4 g/dL (13.0-17.0); Immature Grans, Automated 0.1 %; Lymphocytes # (A) 2.98 X 10*3/uL (0.90-5.00); Lymphocytes % (A) 37.5 %; MCH 30.3 pg (27.0-32.0); Mean Platelet Volume 11.4 fL (9.5-12.2); Monocytes # (A) 0.59 X 10*3/uL (0.20-1.00); Monocytes % (A) 7.4 %; NRBC Per 100 WBC 0 /100 WBCS (0.0-0.0); Neutrophils # (A) 4.13 X 10*3/uL (1.80-7.70); Neutrophils % (A) 52.1 %; Platelet Count 165 X 10*3/uL (140-440); RBC 4.75 X 10*6/uL (4.40-5.60); RDW 12.1 % (11.5-14.5); WBC 7.94 X 10*3/uL (4.50-10.00)
[2022-05-01 23:20] LABS: Valproic Acid (Depakene) 42.9 ug/mL (50.0-100.0)
== END | disposition home or self-care (01) ==
LOC: LABWHC1 15:53
PROVIDERS: ATTEND Psychiatry & Neurology Neurology
DX: G40.909 Epilepsy, unspecified, not intractable, without status epilepticus (principal)
CPT/HCPCS: 36415; 80164; 84450; 84460; 85025

== ENCOUNTER → 2022-05-15 | Outpatient (CLI) | payer OTHER ==
--- NOTE | 2022-05-15 13:02 | CT ---
EXAMINATION TYPE: CT brain wo con DATE OF EXAM: 05/15/2022 COMPARISON: 12/27/2021 HISTORY: 47-year-old male G40.909, seizure disorder, Epilepsy TECHNIQUE: Examination was done in axial plane without intravenous contrast. Coronal and sagittal r econstructions performed. CT DLP: 1225.6 mGycm Automated exposure control for dose reduction was used. FINDINGS: Interval resolution of the previous right greater than left bifrontal parenchymal hematomas. Areas of encephalomalacia remain, right greater than left in the frontal lobes. Additional encephalomalacia a nterior bitemporal lobes. CSF density crescentic fluid along the left lateral convexity appears to cheek ve resolved. The previous thickening of the posterior falx has also improved. Mild ventricular prominence now noted, likely central cervical atrophy. Dense anterior dural calcifications along the falx are similar. There is no evidence of acute intracranial hemorrhage, acute ischemic changes, mass, mass-effect, or extra-axial fluid collection. There is no effacement of cerebral sulci or basal subarachnoid cister ns. There is no midline shift. Dye-white matter distinction is preserved. There is sinuses and mastoid air cells are well pneumatized. Leftward nasal septal deviation. IMPRESSION: 1. Interval development of bifrontal encephalomalacia, right greater than left, after resolution of p revious intraparenchymal hematomas. Areas of anterior bitemporal encephalomalacia have also developed and are suggestive of a posttraumatic etiology. 2. Crescentic CSF density prominence along the left lateral convexity has resolved. Findings suggest resolution of previous chronic subdural hematoma versus resolved subdural hygroma. 3. Interval resolution of previous small subdural hematoma along the posterior falx. 4. Mild central cerebral atrophy. No acute intracranial abnormality seen.
== END | disposition home or self-care (01) ==
LOC: RADCTMAIN 10:33
PROVIDERS: ATTEND Psychiatry & Neurology Neurology
DX: G40.909 Epilepsy, unspecified, not intractable, without status epilepticus (principal); I62.9 Nontraumatic intracranial hemorrhage, unspecified; G31.9 Degenerative disease of nervous system, unspecified
CPT/HCPCS: 70450

== ENCOUNTER → 2022-08-15 | Outpatient (CLI) | payer OTHER | END | disposition home or self-care (01) | LOC: LABWHC1 11:31 | PROVIDERS: ATTEND Psychiatry & Neurology Neurology | DX: G40.909 Epilepsy, unspecified, not intractable, without status epilepticus (principal) | CPT/HCPCS: 36415; 80164 ==

== ENCOUNTER → 2022-09-12 | Outpatient (CLI) | payer OTHER ==
[2022-09-12 22:46] LABS: Platelet Count 157 X 10*3/uL (140-440)
[2022-09-12 23:01] LABS: Valproic Acid (Depakene) 71.4 ug/mL (50.0-100.0)
== END | disposition home or self-care (01) ==
LOC: LABWHC1 11:45
PROVIDERS: ATTEND Psychiatry & Neurology Neurology
DX: G40.909 Epilepsy, unspecified, not intractable, without status epilepticus (principal)
CPT/HCPCS: 36415; 80164; 84450; 84460; 85049

== ENCOUNTER → 2023-07-31 | Outpatient (CLI) | payer BC ==
[2023-07-31 22:54] LABS: HCT 46.1 % (39.6-50.0); MCH 30.5 pg (27.0-32.0); MCHC 32.5 d/dL (32.0-37.0); MCV 93.9 FL (80.0-97.0); Mean Platelet Volume 11.6 FL (9.5-12.2); NRBC Per 100 WBC 0 X 10*3/uL (0.00-0.01); Platelet Count 178 X 10*3/uL (140-440); RBC 4.91 X 10*6/uL (4.40-5.60); RDW 12.3 % (11.5-14.5); WBC 7.94 X 10*3/uL (4.50-10.00)
[2023-07-31 23:10] LABS: Valproic Acid (Depakene) 50.3 UG/ML (50.0-100.0)
== END | disposition home or self-care (01) ==
LOC: LABWHC1 11:01
PROVIDERS: ATTEND Psychiatry & Neurology Neurology
DX: G40.909 Epilepsy, unspecified, not intractable, without status epilepticus (principal)
CPT/HCPCS: 36415; 80164; 84450; 84460; 85027